=== PATIENT | male | born 1965 | race Caucasian/White ===

== ENCOUNTER 2019-04-22 12:51 | Emergency (ER) | payer MEDICAID ==
[~2019-04-22] VITALS: Ht 165.1 cm; Wt 71.2 kg
[2019-04-22 13:42] VITALS: BP 102/48
--- NOTE | 2019-04-22 13:53 | NUR ---
53 Y/O M C/C BODYACHES X1 WEEK; VOMITING X3 DAYS. PAIN 12/08, PT HAS TAKEN ADVIL AT HOME WITH NO RELIEF. PT UP TO DATE WITH FLU SHOT; NO ONE SICK AT HOME. PT NKA. HX DM,HTN,HDL. RX METFORMIN, INSULIN, DOES NOT RECALL HTN RX. SIDE RAIL X1.
[2019-04-22] MEDS ORDERED: ALBUTEROL SULFATE/IPRATROPIU 3 ML SOL IH ONE (14:05)
[2019-04-22] MEDS ORDERED: ONDANSETRON 4 MG/2 ML VIAL IVP ONE (14:05)
[2019-04-22] MEDS ORDERED: KETOROLAC 30 MG/ML VIAL IVP ONE (14:05)
[2019-04-22] MEDS ORDERED: NACL 0.9% 1,000 ML IV ONE ×2 (14:05→15:55)
--- NOTE | 2019-04-22 14:15 | NUR ---
RT AT BEDSIDE PROVIDING ORDERED BREATHING TREATMENT.
--- NOTE | 2019-04-22 14:30 | NUR ---
PT STATES PAIN IS GONE AFTER TORADAL GIVEN. PT RESTING COMFORTABLY, VSS.
--- NOTE | 2019-04-22 14:42 | NUR ---
FLU SWAB PERFORMED, SENT TO LAB
--- NOTE | 2019-04-22 14:44 | NUR ---
Note sarbjit in EDM - 04/22/19 at [address] [facility] Patient discharged with v/s stable. Written and verbal after care instructions given and explained. Patient alert, oriented and verbalized understanding of instructions. Ambulatory with steady gait. All questions addressed prior to discharge. ID band removed. Patient advised to follow up with PMD. Rx of PREDNISONE given. Patient educated on indication of medication including possible reaction and side effects. Opportunity to ask questions provided and answered.
[2019-04-22 15:04] LABS: BASOPHILS % (AUTO) 0.1 % (0.0-2.0); EOSINOPHILS % (AUTO) 0.4 % (0.0-4.0); HEMATOCRIT 36.1 % (36-52); HEMOGLOBIN 11.9 g/dL (12.0-18.0); LYMPHOCYTES # (AUTO) 1.1 K/uL (2.0-11.5); LYMPHOCYTES % (AUTO) 9.7 % (20.5-51.1); MEAN CORPUSCULAR HEMOGLOBIN 30 pg (27-31); MEAN CORPUSCULAR HGB CONC 33 g/dL (33-37); MEAN CORPUSCULAR VOLUME 89.8 fL (80-94); MONOCYTES # (AUTO) 0.9 K/uL (0.8-1.0); NEUTROPHILS # (AUTO) 9.6 K/uL (1.8-7.7); NEUTROPHILS % (AUTO) 81.8 % (42.2-75.2); PLATELET COUNT (AUTO) 266 K/uL (140-450); RED BLOOD CELL COUNT(AUTO) 4.02 MIL/uL (4.20-6.10); RED CELL DISTRIBUTION WIDTH 12.8 % (11.6-13.7); WHITE BLOOD COUNT (AUTO) 11.7 K/uL (4.8-10.8)
[2019-04-22 15:09] LABS: APPEARANCE,URINE CLEAR (CLEAR); BILIRUBIN,URINE NEGATIVE (NEGATIVE); BLOOD, URINE NEGATIVE (NEGATIVE); COLOR,URINE YELLOW (YELLOW); LEUKOCYTE ESTERASE ,URINE NEGATIVE (NEGATIVE); NITRITE, URINE NEGATIVE (NEGATIVE); PH,URINE 5.5 (5.0-9.0); UGLUCOSE TRACE (NEGATIVE)
[2019-04-22 15:20] LABS: ALBUMIN 3.7 g/dL (3.4-5.0); ANION GAP 7.3 (8-16); CARBON DIOXIDE 28.9 mmol/L (21-32); CREATININE 1.8 mg/dL (0.7-1.3); POTASSIUM 4.2 mmol/L (3.5-5.1); TOTAL BILIRUBIN 0.5 mg/dL (0.0-1.0)
[2019-04-22] MEDS ORDERED: INSULIN REGULAR, HUMAN 100 UNIT/ML VIAL SUBQ ONE (15:50)
[2019-04-22] MEDS ORDERED: ACETAMINOPHEN EXTRA STRENGTH 500 MG TAB PO ONE (15:55)
[2019-04-22 16:47] VITALS: BP 102/48
--- NOTE | 2019-04-23 12:54 | NUR ---
Late entry. Confirmed with RN that 0.9 NS IV completed at 1515
--- NOTE | 2019-04-23 12:54 | NUR ---
Late entry. Confirmed with RN that 0.9 NS IV completed at 1700
== END 2019-04-22 14:44 | disposition home or self-care (01) ==
LOC: MED 12:51
DX: R53.1 Weakness (principal); E11.65 Type 2 diabetes mellitus with hyperglycemia; I10 Essential (primary) hypertension; E78.5 Hyperlipidemia, unspecified; E86.0 Dehydration; E87.1 Hypo-osmolality and hyponatremia
CPT/HCPCS: 36415; 71045; 80053; 81003; 85025; 87804; 94640; 96361; 96372; 96374; 96375; 99284; J1815; J1885; J2405; J7030; J7620; Q0092